=== PATIENT | female | born 1950 | race Caucasian/White ===

== ENCOUNTER 2018-03-08 09:16 | Outpatient (CLI) | payer MEDICARE, MEDICAID | END 2018-03-08 09:17 | disposition home or self-care (01) | LOC: BICMAMMO 09:16 | PROVIDERS: ATTEND Family Medicine | DX: Z12.31 Encounter for screening mammogram for malignant neoplasm of breast (principal); N63.20 Unspecified lump in the left breast, unspecified quadrant; Z80.3 Family history of malignant neoplasm of breast; Z85.3 Personal history of malignant neoplasm of breast | CPT/HCPCS: 77063; 77067 ==

== ENCOUNTER 2018-03-22 09:11 | Outpatient (CLI) | payer MEDICARE, MEDICAID | END 2018-03-22 09:12 | disposition home or self-care (01) | LOC: BICMAMMO 09:11 | PROVIDERS: ATTEND Family Medicine | DX: N63.20 Unspecified lump in the left breast, unspecified quadrant (principal) | CPT/HCPCS: 77065; G0279 ==

== ENCOUNTER 2018-03-22 09:14 | Outpatient (CLI) | payer MEDICARE, MEDICAID | END 2018-03-22 09:15 | disposition home or self-care (01) | LOC: BICMAMMO 09:14 | PROVIDERS: ATTEND Family Medicine | DX: M85.80 Other specified disorders of bone density and structure, unspecified site (principal); N63.20 Unspecified lump in the left breast, unspecified quadrant; M81.0 Age-related osteoporosis without current pathological fracture | CPT/HCPCS: 77080 ==

== ENCOUNTER → 2018-03-29 | Day surgery (SDC) | payer MEDICARE, MEDICAID | LOC: BICULT 09:52 | PROVIDERS: ATTEND Family Medicine | PROC: 0HBU3ZX Excision of Left Breast, Percutaneous Approach, Diagnostic (ICD-10-PCS; principal; 2018-03-29) | DX: C50.812 Malignant neoplasm of overlapping sites of left female breast (principal); Z85.3 Personal history of malignant neoplasm of breast; Z91.041 Radiographic dye allergy status; Z91.040 Latex allergy status | CPT/HCPCS: 19083; 88305; 88341; 88342; 88360; 88361 ==

== ENCOUNTER 2018-05-06 10:29 | Outpatient (CLI) | payer MEDICARE, MEDICAID ==
[2018-05-06 11:18] LABS: Hemoglobin 12.2 g/dL (12.0-16.0); Lymphocytes 77 % (21-51); MDiff Complete? YES; Mean Corpuscular HGB CONC 32.9 g/dL (32.0-36.0); Mean Platelet Volume 8.7 fL (7.4-10.4); Monocytes 4 % (0-10); Neutrophil 19 % (42-75); Platelet Count 168 thou/uL (130-400); RBC Distribution Width 11.6 % (11.5-14.5); RBC Morphology Normal; Red Blood Cell (RBC) Count 3.69 mill/uL (4.20-5.40); Reflex for Review?? YES; White Blood Cell (WBC) Count 23.5 thou/uL (4.8-10.8)
[2018-05-06 11:19] LABS: Anion Gap 12 mmol/L (10-20); BUN (Urea Nitrogen) 19 mg/dL (9.8-20.1); Calc. Creatinine Clearance 0 mL/min (70-130); Calcium 9.7 mg/dL (7.8-10.44); Carbon Dioxide 26 mmol/L (23-31); Chloride 106 mmol/L (98-107); Estimated GFR-MDRD 69; Glucose 113 mg/dL (80-115); Potassium 4.9 mmol/L (3.5-5.1); Sodium 139 mmol/L (136-145)
== END 2018-05-06 10:30 | disposition home or self-care (01) ==
LOC: LABBT 10:29
PROVIDERS: ATTEND Specialist
DX: Z01.818 Encounter for other preprocedural examination (principal); C50.912 Malignant neoplasm of unspecified site of left female breast; R59.0 Localized enlarged lymph nodes
CPT/HCPCS: 80048; 85025; 93005; 93010

== ENCOUNTER 2018-05-10 06:10 | Day surgery (SDC) | payer MEDICARE, MEDICAID ==
[2018-05-06 11:16] VITALS: BMI 34.7
--- NOTE | 2018-05-10 10:52 | NM ---
LEFT BREAST LYMPHOSCINTIGRAPHY: Date: 05/10/18 HISTORY: Malignant neoplasm of unspecified site of left female breast. RADIOPHARMACEUTICAL: 400 microcuries technetium-99m filtered sulfur colloid injected in divided doses in the left periareo lar breast. FINDINGS: There is focally increased uptake in the left axilla consistent with sentinel lymph node. No tracer l ocalization is noted in the internal mammary chains of the right axilla. IMPRESSION: [place] lymph node in the left axilla. POS: OFF
[2018-05-10] MEDS ORDERED: CEFAZOLIN/Water 2 GM/20 ML SYRINGE ONE (11:11)
[2018-05-10] MEDS ORDERED: Ketorolac Tromethamine 30 MG/ML VIAL ONE (11:12)
[2018-05-10] MEDS ORDERED: Dexamethasone 20 MG/5 ML VIAL ONE (13:14)
[2018-05-10] MEDS ORDERED: Metoclopramide HCl 10 MG/2 ML VIAL ONE (13:14)
[2018-05-10] MEDS ORDERED: Ondansetron HCl/PF 4 MG/2 ML Vial ONE (13:14)
[2018-05-10] MEDS ORDERED: PROPOFOL 200 MG/20 ML VIAL ONE (13:14)
[2018-05-10] MEDS ORDERED: Lidocaine 1% PF 5 ML VIAL ONE (13:14)
[2018-05-10] MEDS ORDERED: Isosulfan Blue 50 MG/5 ML VIAL ONE (14:13)
[2018-05-10] MEDS ORDERED: Bupivacaine/Epinephrine 0.25% 30 ML VIAL ONE ×2 (14:13→15:58)
[2018-05-10] MEDS ORDERED: Fentanyl 100 MCG/2 ML VIAL ONE (14:14)
--- NOTE | 2018-05-10 16:29 | MMO ---
SPECIMEN RADIOGRAPH: Date: 05/10/18 HISTORY: Excision of left breast lesion. FINDINGS: A specimen radiograph is provided. The specimen contains a localization wire, a post biopsy clip, and a spiculated mass. The spiculated mass is centered at the I/J3 location. IMPRESSION: Specimen radiograph demonstrates a post biopsy clip and spiculated mass, as above. POS: [facility]
--- NOTE | 2018-05-11 15:30 | OP ---
DATE OF OPERATION: 05/10/2018 PREOPERATIVE DIAGNOSIS: Left breast cancer, chronic lymphocytic leukemia involving at least the lymp h nodes and left axilla. POSTOPERATIVE DIAGNOSIS: Left breast cancer, chronic lymphocytic leukemia involving at least the lym ph nodes and left axilla. OPERATION PERFORMED: Left breast ultrasound guided needle localization of breast cancer, left breast needle localized lumpectomy, left axillary sentinel lymph node biopsy. SURGEON: Jah Schilling M.D. ANESTHESIA: General endotracheal. INDICATIONS: The patient is a 67-year-old white female. On recent mammography, she was found to hav e a lesion in her upper left breast. This is biopsy proven to be a malignancy. She had large left a xillary lymph nodes. I performed a core needle biopsy of these revealing findings consistent with CL L. It was not felt that she required any further evaluation and treatment of this at this time and d ecision was made to proceed with breast conservation surgery. DESCRIPTION OF OPERATION: Informed consent was obtained. The patient was taken to the operating sacha m where general endotracheal anesthesia obtained with the patient in supine position. Left breast wa s infiltrated with 3 mL of Lymphazurin in the periareolar subdermal tissue and the breast was massage d for five minutes. Left breast and axilla were prepped with ChloraPrep and draped in sterile fashio n. Attention was turned first to the left axilla. A transverse incision was created at the inferior aspect of the hair bearing area. Dissection was carried through the skin, subcutaneous tissue, and anterior axillary fascia. Within the axilla, I was able to identify areas of obvious increased radio activity. The single dominant sentinel lymph node was quickly identified and dissected circumferashley thorpe. This was clearly enlarged but it is suspected that this was secondary to her CLL. All investi ng lymphatics were divided between clamps and 3-0 silk ties and then the lymph node was removed. Thi s was blue stained as well. This was submitted as the dominant sentinel lymph node. I then identifi ed two additional areas of radioactivity. These two lymph nodes were also dissected circumferentiall y and removed in a similar fashion. These had substantially less radioactivity within the dominant n ode. There were, however, enlarged and abnormal as well. All nodes were submitted to pathology to tristen barajas touch prep, which revealed no evidence of metastatic breast cancer. Meticulous hemostasis obt ained within the axilla. It was closed in layers with 3-0 and 4-0 Monocryl and Dermabond was placed externally. Attention was turned to the left breast. Ultrasound was utilized to identify the malignancy at the 1 2 o'clock radian. This was marked on the skin in a grid type fashion. I then performed needle local ization, passing the localizing needle through the malignancy in a lateral to medial fashion. Incisi on was created in continuity with the localizing needle. Dissection was carried through skin and sub cutaneous tissue. Flaps were raised. The tissue into which the needle entered was grasped with Lyndon s clamps and a wide lump of tissue was obtained around the localizing needle. The specimen was remov ed from within the breast and tagged for orientation with several sutures and submitted to pathology. Specimen mammography did reveal the spiculated lesion within the mass as well as the marking clip. Meticulous hemostasis was obtained within the wound. It was closed in layers with 3-0 and 4-0 Monocr yl and Dermabond was placed externally. There were no complications with this procedure. Blood loss was negligible. The patient tolerated the procedure well and was taken to recovery room in stable c ondition.
== END 2018-05-10 17:59 | disposition home or self-care (01) ==
LOC: SDC 06:10
PROVIDERS: ATTEND Specialist
PROC: 0HBU0ZZ Excision of Left Breast, Open Approach (ICD-10-PCS; principal; 2018-05-10)
PROC: 07B60ZX Excision of Left Axillary Lymphatic, Open Approach, Diagnostic (ICD-10-PCS; 2018-05-10)
DX: C50.812 Malignant neoplasm of overlapping sites of left female breast (principal); C91.10 Chronic lymphocytic leukemia of B-cell type not having achieved remission; G47.00 Insomnia, unspecified; E05.90 Thyrotoxicosis, unspecified without thyrotoxic crisis or storm; E78.5 Hyperlipidemia, unspecified; I10 Essential (primary) hypertension; M81.0 Age-related osteoporosis without current pathological fracture; J44.9 Chronic obstructive pulmonary disease, unspecified; F43.23 Adjustment disorder with mixed anxiety and depressed mood; Z87.891 Personal history of nicotine dependence; Z79.51 Long term (current) use of inhaled steroids; Z79.83 Long term (current) use of bisphosphonates; Z79.899 Other long term (current) drug therapy; Z91.040 Latex allergy status; Z88.5 Allergy status to narcotic agent; Z91.048 Other nonmedicinal substance allergy status; Z17.0 Estrogen receptor positive status [ER+]
CPT/HCPCS: 19301; 38525; 38900; 76098; 78195; 88184; 88307; 88333; 88334; 88341; 88342; 88360; A9541; Q9968; J0131; J1100; J1885; J2001; J2405; J2704; J2765; J3010

== ENCOUNTER 2018-06-27 11:30 | Outpatient (CLI) | payer MEDICARE, MEDICAID ==
[~2018-06-27 11:30] MED LIST: Iopamidol 370 76% 100 ML VIAL ONE
--- NOTE | 2018-06-27 14:27 | CT ---
CHEST CT WITH IV COTRAST: 06/27/2018 HISTORY: Breast cancer. Right upper lobe mass seen on prior imaging. COMPARISON: None. TECHNIQUE: Serial axial CT imaging is obtained at 5 mm intervals, from the thoracic inlet through the upper abdo men with IV contrast. Coronal reformatted imaging obtained. FINDINGS: There is irregular soft tissue mass density within the superior aspect of the left breast parenchyma, at the 12 o'clock position, measuring 3.3 cm, on image 17, significance uncertain. This could be re lated to post treatment change or breast malignancy. There are enlarged nodes in the axillary region , on the left, measuring up to 1.7 cm in short axis dimension. These could be reactive or metastatic in nature. Multiple abnormal, mildly enlarged lymph nodes are seen posterior to the left pectoralis minor muscle as well. Mildly prominent axillary lymph nodes are noted on the right as well, measuring up to 1.6 cm in short axis dimension, significance uncertain. There are postoperative clips in the right axillary region. 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 No mediastinal or hilar lymphadenopathy. Cholecystectomy clips are present. Imaged hepatic and splenic parenchyma demonstrate no focal lesion . Abnormal tubular hypodensity is noted within the distal aspect of the tail of the pancreas, best s een on axial image 52 and coronal image 78. This may signify distal pancreatic ductal dilatation and /or a cystic mass within the tail of the pancreas. No significant pleural, pericardial, or mediastinal fluid. Vascular structures of the chest appear p atent. Incidental note is made of a retropharyngeal course of bilateral common carotid arteries. No pneumothorax is noted on either side. No discrete pulmonary parenchymal mass lesion or nodule noted on the left. There is a spiculated mass within the right lung, superiorly, measuring 1.6 cm. This appears to be j ust superior to the minor fissure, within the inferior-posterior right upper lobe. In addition, ther e is a pulmonary nodule in the posterior aspect of the right lower lobe, on image 26, measuring 7 mm. Review of the osseous structures demonstrates no discrete suspicious lytic or blastic lesion. There is an old clavicle fracture on the left. IMPRESSION: 1. Focal area of abnormal density in the left breast, at the 12 o'clock position, may be on the basi s of residual malignancy and/or post treatment changes. 2. Lymphadenopathy in bilateral axillary regions, left greater than right. Findings may be on the b asis of metastatic disease. 3. Pulmonary nodules are noted on the right, including a spiculated mass measuring up to 1.6 cm. Th is is suspicious for malignancy and may represent primary bronchogenic carcinoma or metastatic diseas e. 4. 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 Please consider a PET scan for full assessment of the above described findings. ADDENDUM: A prior examination is available, performed on 06/26/2014. Of note, the lesion within the right uppe r lobe was previous on the prior examination, but measured 1.2 cm in transverse dimension, thus enlar ged. In addition, the small nodule within the right lower lobe was present but has also increased in size, previously measuring less than 3 mm. The bilateral axillary lymphadenopathy is new. CODE T POS: [facility]
== END 2018-06-27 11:31 | disposition home or self-care (01) ==
LOC: CT 11:30
PROVIDERS: ATTEND Radiology Radiation Oncology
DX: C50.919 Malignant neoplasm of unspecified site of unspecified female breast (principal); R91.1 Solitary pulmonary nodule; N64.89 Other specified disorders of breast; R59.0 Localized enlarged lymph nodes; R91.8 Other nonspecific abnormal finding of lung field
CPT/HCPCS: 71260; 77412; 82565; 85025

== ENCOUNTER 2018-09-13 18:16 | Emergency (ER) | payer MEDICARE, MEDICAID ==
[2018-09-13] MEDS ORDERED: Ketorolac Tromethamine 30 MG/ML VIAL ONE (19:14)
[2018-09-13] MEDS ORDERED: Morphine 10 MG/ML VIAL ONE (20:03)
--- NOTE | 2018-09-13 20:14 | RAD ---
CHEST ONE VIEW 09/13/18 HISTORY: Intermittent left rib pain. COMPARISON: 05/26/16. FINDINGS: Portable upright chest radiograph demonstrates a normal cardiac silhouette. Pulmonary vessels are wit hin normal limits. There are interstitial opacities throughout the lung parenchyma, without consolida tion or mass. No pleural effusions. No pneumothorax or acute osseous abnormalities. IMPRESSION: Presumed chronic change in the lung parenchyma. Prominence of the interstitium is likely in part due to decreased lung volumes. POS: [facility]
== END 2018-09-13 20:37 | disposition home or self-care (01) ==
LOC: ERS 18:16
DX: R07.89 Other chest pain (principal); J44.9 Chronic obstructive pulmonary disease, unspecified; I10 Essential (primary) hypertension; M81.0 Age-related osteoporosis without current pathological fracture; F41.9 Anxiety disorder, unspecified; F32.9 Major depressive disorder, single episode, unspecified; Z79.899 Other long term (current) drug therapy
CPT/HCPCS: 71045; 96372; J1885; J2270

== ENCOUNTER 2018-10-20 10:01 | Outpatient (CLI) | payer MEDICARE, MEDICAID ==
--- NOTE | 2018-10-20 13:49 | CT ---
CT CHEST WITH CONTRAST: Comparison: 07-15-18, 06-26-14 History: Right upper lobe mass. FINDINGS: Mild heterogeneity of the thyroid gland. There is asymmetric change to the left breast, post treatmen t in nature. There is no mediastinal mass, lymphadenopathy or hematoma. Heart size is within normal limits. No sig nificant pericardial fluid. The visualized aorta has a normal caliber. No periaortic fat stranding. There is hypoattenuation involving the tail of the pancreas, measuring 2.8 cm. The remainder of the p ancreas is unremarkable. Gallbladder is surgically absent. Visualized liver, spleen, adrenal glands and kidneys are also unremarkable. There are no lytic or blastic lesions in the osseous structures. There is a stable compression fractu re involving the T11 and T12 vertebral body. There is ventral planus at T12. There are chronic changes of the lung parenchyma. There are no new masses or nodules in the left uppe r lobe or left lower lobe. There is a stable nodule in the superior segment of the right lower lobe m easuring 0.7 x 0.5 cm. Previously, this nodule measured 0.7 cm. Nodule has increased in size since . There is a larger nodule that is in the right upper lobe. The margins are somewhat spiculated. Th is nodule measures 1.5 x 1.0 cm. Previously, this nodule measured 1.6 x 1.1 cm. This nodule has sligh tly increased in size when compared to the examination from 2013 at which time it measured 1.2 x 0.9 cm. Given the interval increase in size and spiculation of the margins, PET imaging is warranted. No new nodules are noted in the right lung. Trachea and central bronchi are patent. No pleural effusi on or pneumothorax. IMPRESSION: Right lung nodule as described above. PET imaging is recommended. POS: [facility]
== END 2018-10-20 10:02 | disposition home or self-care (01) ==
LOC: SCSCT 10:01
PROVIDERS: ATTEND Radiology Radiation Oncology
DX: R91.1 Solitary pulmonary nodule (principal); C50.812 Malignant neoplasm of overlapping sites of left female breast
CPT/HCPCS: 71260; 82565

== ENCOUNTER 2019-05-23 19:30 | Outpatient (CLI) | payer MEDICARE, MEDICAID | END 2019-05-23 19:31 | disposition home or self-care (01) | LOC: SLEEPLAB 19:30 | PROVIDERS: ATTEND Internal Medicine Pulmonary Disease | DX: G47.33 Obstructive sleep apnea (adult) (pediatric) (principal); R53.83 Other fatigue; E66.9 Obesity, unspecified; R06.83 Snoring; J44.9 Chronic obstructive pulmonary disease, unspecified; I10 Essential (primary) hypertension; R35.1 Nocturia; G47.12 Idiopathic hypersomnia without long sleep time; R09.02 Hypoxemia | CPT/HCPCS: 95810 ==

== ENCOUNTER 2019-08-11 08:02 | Outpatient (CLI) | payer MEDICARE, MEDICAID ==
--- NOTE | 2019-08-11 09:55 | RAD ---
RIGHT KNEE 4 VIEWS: Date: 08/11/19 HISTORY: M25.561 acute pain in right knee. Follow-up. COMPARISON: None. FINDINGS: Small joint effusion. No acute displaced fracture or malalignment. There is moderate tricompartmental narrowing with osteophyte formation, greatest in the medial compartment. IMPRESSION: 1. Moderate tricompartmental degenerative change. No acute displaced fracture. 2. Small joint effusion may be reactive from degenerative changes. POS: [facility]
== END 2019-08-11 08:03 | disposition home or self-care (01) ==
LOC: SCSRAD 08:02
PROVIDERS: ATTEND Family Medicine
DX: M25.561 Pain in right knee (principal); M17.11 Unilateral primary osteoarthritis, right knee; M25.461 Effusion, right knee

== ENCOUNTER 2021-11-06 14:25 | Inpatient (IN) | payer MEDICARE, MEDICAID ==
[2021-11-06 15:14] LABS: #Eosinphils 0.1 thou/uL (0.0-0.7); #Lymphocytes 1.5 thou/uL (1.20-3.40); #Monocytes 1.2 thou/uL (0.11-0.59); %Basophils 0.1 % (0.0-1.0); %Eosinophils 0.6 % (0.0-10.0); %Monocytes 13.4 % (0.0-10.0); %Neutrophils 68.9 % (42.0-75.0); Hemoglobin 11.6 g/dL (12.0-16.0); Mean Corpuscular Hemoglobin 32.5 pg (27.0-31.0); Mean Corpuscular Volume 98.7 fL (78.0-98.0); Mean Platelet Volume 10.3 fL (7.4-10.4); Platelet Count 82 thou/uL (130-400); RBC Distribution Width 13.2 % (11.5-14.5); Red Blood Cell (RBC) Count 3.57 mill/uL (4.20-5.40); White Blood Cell (WBC) Count 8.7 thou/uL (4.8-10.8)
[2021-11-06 15:34] LABS: ALT (SGPT) 8 U/L (8-55); AST (SGOT) 15 U/L (5-34); Alkaline Phosphatase 54 U/L (40-110); Anion Gap 10 mmol/L (10-20); BUN (Urea Nitrogen) 16 mg/dL (9.8-20.1); Bilirubin, Total 0.7 mg/dL (0.2-1.2); CK (CPK) 27 U/L (29-168); Calc. Creatinine Clearance 0 mL/min (70-130); Calcium 9.7 mg/dL (7.8-10.44); Carbon Dioxide 28 mmol/L (23-31); Chloride 104 mmol/L (98-107); Globulin 2.4 g/dL (2.4-3.5); Glucose 110 mg/dL (83-110); Lipase 8 U/L (8-78); Potassium 3.6 mmol/L (3.5-5.1); Protein, Total 5.4 g/dL (5.8-8.1); Sodium 138 mmol/L (136-145)
[2021-11-06 15:41] LABS: MDiff Complete? YES; Ovalocytes SLIGHT = 2-5 cells (100X) (0-1/hpf); Platelet Morphology Comment Appears Decreased; Polychromasia SLIGHT = 2-3 cells (100X) (0-2/hpf)
[2021-11-06 16:06] LABS: Bacteria/HPF None Seen HPF (None Seen); Bilirubin Negative (Negative); Blood, Urine Trace (Negative); Clarity Clear (Clear); Glucose, Urine (Dipstick) Normal (Negative); Ketone, Urine Negative (Negative); Leukocyte Negative Leu/uL (Negative); Nitrite Negative (Negative); Protein, Urine (Dipstick) 70 mg/dL (Neg-Trace); Specific Gravity, Urine 1.021 (1.002-1.036); Squamous Epithelial None Seen HPF (0-3); Urobilinogen Normal mg/dL (Less than 2); WBC/HPF None Seen HPF (0-3); pH, Urine 6.5 (5.0-9.0)
[2021-11-06] MEDS ORDERED: cefTRIAXone\\ROCEPHIN 2 GM VIAL ONE (16:38)
[2021-11-06 17:40] LABS: Actual Bicarbonate (HCO3v) 28 mEq/L (22-28); Analyzer IN Cardio ER; Base Excess 1.1 mEq/L (-2.0 to +3.0); Calcium, Ionized (venous) 1.17 mmol/L (1.16-1.32); Chloride (VBG) 106 mmol/L (98-106); Hemoglobin (Hb) 10.8 g/dL (11.7-16.1); Potassium (VBG) 3.64 mmol/L (3.70-5.30); Sodium 138.8 mmol/L (133-146); pH (venous) 7.31 (7.32-7.43)
[2021-11-06] MEDS ORDERED: Ondansetron PF 4 MG/2 ML Vial IVP PRN (17:40)
[2021-11-06] MEDS ORDERED: Acetaminophen 650 MG Suppository PR PRN (17:40)
[2021-11-06] MEDS ORDERED: Senokot S 8.6-50 MG TAB PO PRN (17:40)
[2021-11-06] MEDS ORDERED: Bisacodyl 5 MG TAB PO PRN (17:40)
[2021-11-06 17:46] LABS: INR-International Normal Ratio 1.1; PTT 33.6 sec (22.9-36.1); Prothrombin Time 14.4 sec (12.0-14.7)
[2021-11-06] MEDS ORDERED: Azithromycin 500 MG VIAL ONE (17:54)
[2021-11-06 19:34] VITALS: BMI 33.9
[2021-11-06 19:57] LABS: Acetaminophen Less than 6.0 mcg/mL (10.0-30.0); Salicylate Less than 8.0 mg/dL (15.0-30.0)
[2021-11-06] MEDS ORDERED: Methimazole 5 MG TAB PO SCH (20:30)
[2021-11-06] MEDS ORDERED: Albuterol Sulfate 2.5 mg/3 ml Neb NEB PRN (20:43)
[2021-11-06] MEDS ORDERED: Famotidine/PF 20 mg/2ml Vial SLOW IVP SCH (21:00)
[2021-11-06] MEDS: Sodium Chloride 0.9% 1,000 ML IV SCH (21:00)
[2021-11-07 03:24] LABS: Amphetamine Not Detected (NotDetected); Barbiturates Screen Not Detected (NotDetected); Benzodiazepine Screen Detected (NotDetected); Cocaine Metabolite Screen Not Detected (NotDetected); Methadone Not Detected (NotDetected); Methamphetamine Not Detected (NotDetected); Opiate Screen Detected (NotDetected); Oxycodone Screen Not Detected (NotDetected); Phencyclidine (PCP) Not Detected (NotDetected); THC/Cannabinoid Screen Not Detected (NotDetected); Tricyclic Screen Detected (NotDetected)
[2021-11-07 05:50] LABS: #Eosinphils 0.1 thou/uL (0.0-0.7); #Lymphocytes 1.2 thou/uL (1.20-3.40); #Monocytes 0.8 thou/uL (0.11-0.59); #Neutrophils 4.7 thou/uL (1.40-6.50); %Basophils 0.1 % (0.0-1.0); %Eosinophils 0.9 % (0.0-10.0); %Lymphocytes 17.8 % (21.0-51.0); %Monocytes 11.3 % (0.0-10.0); %Neutrophils 69.9 % (42.0-75.0); Hemoglobin 10.3 g/dL (12.0-16.0); Mean Corpuscular Hemoglobin 32.4 pg (27.0-31.0); Mean Corpuscular Volume 98.2 fL (78.0-98.0); Platelet Count 75 thou/uL (130-400); RBC Distribution Width 13.3 % (11.5-14.5); Red Blood Cell (RBC) Count 3.19 mill/uL (4.20-5.40); White Blood Cell (WBC) Count 6.8 thou/uL (4.8-10.8)
[2021-11-07 06:13] LABS: ALT (SGPT) 7 U/L (8-55); AST (SGOT) 14 U/L (5-34); Albumin 2.9 g/dL (3.4-4.8); Alkaline Phosphatase 53 U/L (40-110); Anion Gap 9 mmol/L (10-20); BUN (Urea Nitrogen) 11 mg/dL (9.8-20.1); Bilirubin, Total 0.5 mg/dL (0.2-1.2); Calc. Creatinine Clearance 111 mL/min (70-130); Calcium 8.6 mg/dL (7.8-10.44); Carbon Dioxide 27 mmol/L (23-31); Chloride 107 mmol/L (98-107); Globulin 2.2 g/dL (2.4-3.5); Glucose 82 mg/dL (83-110); Potassium 3.7 mmol/L (3.5-5.1); Protein, Total 5.1 g/dL (5.8-8.1); Sodium 139 mmol/L (136-145)
[2021-11-07] MEDS ORDERED: Atenolol 50 MG TAB PO SCH (09:00)
[2021-11-07] MEDS ORDERED: Meclizine HCl 25 MG TAB PO PRN (10:09)
[2021-11-07] MEDS: Methimazole 5 MG TAB PO SCH (11:44)
[2021-11-07] MEDS: Acetaminophen 325 MG TAB PO PRN (12:06)
[2021-11-07] MEDS: Ampicillin/Sulbactam 1.5 GM in Sodium Chloride 0.9% 100 ML IVPB SCH ×2 (13:15→17:21)
[2021-11-07] MEDS ORDERED: cefTRIAXone\\ROCEPHIN 1 GM in Sodium Chloride 0.9% 100 ML IVPB SCH (16:00)
[2021-11-07 17:16] LABS: SARS-CoV-2 PCR by NAA Not Detected (NotDetected)
[2021-11-07] MEDS: Sodium Chloride 0.9% 1,000 ML IV SCH (17:21)
[2021-11-07] MEDS ORDERED: Azithromycin 500 MG in Sodium Chloride 0.9% 250 ML 250 ML IVPB SCH (18:00)
[2021-11-07] MEDS: Mometasone Furoate 30 PUFF 220 MCG INH SCH (19:26)
[2021-11-07] MEDS ORDERED: Acetaminophen/Codeine 30-300mg Tablet PO SCH (20:42)
[2021-11-07] MEDS: Rosuvastatin 20 MG TAB PO SCH (22:14)
[2021-11-07] MEDS: Carvedilol 25 MG TAB PO SCH (22:17)
[2021-11-08] MEDS: Ampicillin/Sulbactam 1.5 GM in Sodium Chloride 0.9% 100 ML IVPB SCH ×4 (01:03→20:44)
[2021-11-08 05:32] LABS: #Eosinphils 0.1 thou/uL (0.0-0.7); #Monocytes 0.6 thou/uL (0.11-0.59); %Basophils 0.3 % (0.0-1.0); %Lymphocytes 17.8 % (21.0-51.0); %Monocytes 10.8 % (0.0-10.0); %Neutrophils 69.2 % (42.0-75.0); Hemoglobin 10.8 g/dL (12.0-16.0); Mean Corpuscular Hemoglobin 32.3 pg (27.0-31.0); Mean Corpuscular Volume 97.7 fL (78.0-98.0); Mean Platelet Volume 9.8 fL (7.4-10.4); Platelet Count 84 thou/uL (130-400); RBC Distribution Width 13.4 % (11.5-14.5); Red Blood Cell (RBC) Count 3.35 mill/uL (4.20-5.40); White Blood Cell (WBC) Count 5.8 thou/uL (4.8-10.8)
[2021-11-08 05:52] LABS: Anion Gap 11 mmol/L (10-20); BUN (Urea Nitrogen) 7 mg/dL (9.8-20.1); Calc. Creatinine Clearance 117 mL/min (70-130); Calcium 9.1 mg/dL (7.8-10.44); Carbon Dioxide 25 mmol/L (23-31); Chloride 107 mmol/L (98-107); Glucose 104 mg/dL (83-110); Potassium 3.6 mmol/L (3.5-5.1); Sodium 139 mmol/L (136-145)
[2021-11-08] MEDS: Carvedilol 25 MG TAB PO SCH ×2 (09:20→20:50)
[2021-11-08] MEDS: Clopidogrel Bisulfate 75 MG TAB PO SCH (09:20)
[2021-11-08] MEDS: Methimazole 5 MG TAB PO SCH (09:21)
[2021-11-08] MEDS: Pantoprazole 40 MG GRANULES PACKET PO SCH (13:22)
[2021-11-08] MEDS: Sodium Chloride 0.9% 1,000 ML IV SCH ×2 (13:27→14:33)
[2021-11-08] MEDS: Scopolamine 1.5 mg/72 hour Patch TD SCH (14:54)
[2021-11-08] MEDS: Rosuvastatin 20 MG TAB PO SCH (20:45)
[2021-11-08] MEDS: Mometasone Furoate 30 PUFF 220 MCG INH SCH (21:56)
[2021-11-09] MEDS: Ampicillin/Sulbactam 1.5 GM in Sodium Chloride 0.9% 100 ML IVPB SCH ×4 (02:57→21:21)
[2021-11-09 05:36] LABS: #Lymphocytes 1.4 thou/uL (1.20-3.40); #Monocytes 0.5 thou/uL (0.11-0.59); #Neutrophils 3.6 thou/uL (1.40-6.50); %Basophils 0.2 % (0.0-1.0); %Eosinophils 0.9 % (0.0-10.0); %Lymphocytes 24.7 % (21.0-51.0); %Monocytes 9.1 % (0.0-10.0); %Neutrophils 65.2 % (42.0-75.0); Hemoglobin 11.1 g/dL (12.0-16.0); Mean Corpuscular HGB CONC 33.3 g/dL (32.0-36.0); Mean Corpuscular Hemoglobin 32.7 pg (27.0-31.0); Mean Platelet Volume 10.1 fL (7.4-10.4); Platelet Count 98 thou/uL (130-400); RBC Distribution Width 13.1 % (11.5-14.5); White Blood Cell (WBC) Count 5.5 thou/uL (4.8-10.8)
[2021-11-09 05:51] LABS: Anion Gap 12 mmol/L (10-20); BUN (Urea Nitrogen) 6 mg/dL (9.8-20.1); Calc. Creatinine Clearance 121 mL/min (70-130); Calcium 9.2 mg/dL (7.8-10.44); Carbon Dioxide 23 mmol/L (23-31); Chloride 108 mmol/L (98-107); Glucose 93 mg/dL (83-110); Potassium 3.5 mmol/L (3.5-5.1); Sodium 139 mmol/L (136-145)
[2021-11-09 05:59] LABS: Magnesium 1.8 mg/dL (1.6-2.6)
[2021-11-09] MEDS: Sodium Chloride 0.9% 1,000 ML IV SCH ×2 (07:07→22:49)
[2021-11-09] MEDS: Clopidogrel Bisulfate 75 MG TAB PO SCH (09:19)
[2021-11-09] MEDS: Carvedilol 25 MG TAB PO SCH ×2 (09:20→21:21)
[2021-11-09] MEDS: Methimazole 5 MG TAB PO SCH (09:20)
[2021-11-09] MEDS: Pantoprazole 40 MG GRANULES PACKET PO SCH (09:20)
[2021-11-09] MEDS: Mometasone Furoate 30 PUFF 220 MCG INH SCH (19:33)
[2021-11-09] MEDS: Rosuvastatin 20 MG TAB PO SCH (21:21)
[2021-11-10] MEDS: Ampicillin/Sulbactam 1.5 GM in Sodium Chloride 0.9% 100 ML IVPB SCH ×4 (04:06→20:29)
[2021-11-10 05:43] LABS: #Eosinphils 0.1 thou/uL (0.0-0.7); #Lymphocytes 1.3 thou/uL (1.20-3.40); #Monocytes 0.5 thou/uL (0.11-0.59); #Neutrophils 3.4 thou/uL (1.40-6.50); %Basophils 0.4 % (0.0-1.0); %Eosinophils 1.8 % (0.0-10.0); %Lymphocytes 24.7 % (21.0-51.0); %Monocytes 9.9 % (0.0-10.0); %Neutrophils 63.3 % (42.0-75.0); Hemoglobin 10.9 g/dL (12.0-16.0); Mean Corpuscular HGB CONC 33.7 g/dL (32.0-36.0); Mean Corpuscular Hemoglobin 32.4 pg (27.0-31.0); Mean Corpuscular Volume 96.2 fL (78.0-98.0); Mean Platelet Volume 9.5 fL (7.4-10.4); Platelet Count 113 thou/uL (130-400); RBC Distribution Width 13.2 % (11.5-14.5); Red Blood Cell (RBC) Count 3.36 mill/uL (4.20-5.40); White Blood Cell (WBC) Count 5.4 thou/uL (4.8-10.8)
[2021-11-10 06:03] LABS: Anion Gap 11 mmol/L (10-20); BUN (Urea Nitrogen) 6 mg/dL (9.8-20.1); Calc. Creatinine Clearance 115 mL/min (70-130); Calcium 8.8 mg/dL (7.8-10.44); Carbon Dioxide 24 mmol/L (23-31); Chloride 108 mmol/L (98-107); Glucose 78 mg/dL (83-110); Magnesium 1.7 mg/dL (1.6-2.6); Potassium 3.3 mmol/L (3.5-5.1); Sodium 140 mmol/L (136-145)
[2021-11-10] MEDS: Sodium Chloride 0.9% 1,000 ML IV SCH ×2 (09:04→17:41)
[2021-11-10] MEDS: Carvedilol 25 MG TAB PO SCH ×2 (09:06→20:29)
[2021-11-10] MEDS: Clopidogrel Bisulfate 75 MG TAB PO SCH (09:06)
[2021-11-10] MEDS: Methimazole 5 MG TAB PO SCH (09:07)
[2021-11-10] MEDS: Pantoprazole 40 MG GRANULES PACKET PO SCH (09:07)
[2021-11-10] MEDS: Mometasone Furoate 30 PUFF 220 MCG INH SCH (18:37)
[2021-11-10] MEDS: IBRUTINIB 420 MG TABLET PO SCH (19:22)
[2021-11-10] MEDS: Rosuvastatin 20 MG TAB PO SCH (20:29)
[2021-11-11] MEDS: Ampicillin/Sulbactam 1.5 GM in Sodium Chloride 0.9% 100 ML IVPB SCH ×4 (03:30→20:17)
[2021-11-11 05:29] LABS: #Eosinphils 0.1 thou/uL (0.0-0.7); #Lymphocytes 1.6 thou/uL (1.20-3.40); #Monocytes 0.5 thou/uL (0.11-0.59); #Neutrophils 3.5 thou/uL (1.40-6.50); %Basophils 0.3 % (0.0-1.0); %Eosinophils 1.5 % (0.0-10.0); %Lymphocytes 28.5 % (21.0-51.0); %Monocytes 8.6 % (0.0-10.0); %Neutrophils 61.1 % (42.0-75.0); Hemoglobin 10.9 g/dL (12.0-16.0); Mean Corpuscular HGB CONC 33.7 g/dL (32.0-36.0); Mean Corpuscular Hemoglobin 32.4 pg (27.0-31.0); Mean Platelet Volume 9.3 fL (7.4-10.4); Platelet Count 117 thou/uL (130-400); RBC Distribution Width 13.2 % (11.5-14.5); Red Blood Cell (RBC) Count 3.38 mill/uL (4.20-5.40); White Blood Cell (WBC) Count 5.7 thou/uL (4.8-10.8)
[2021-11-11 05:44] LABS: Anion Gap 11 mmol/L (10-20); BUN (Urea Nitrogen) 7 mg/dL (9.8-20.1); Calc. Creatinine Clearance 119 mL/min (70-130); Carbon Dioxide 23 mmol/L (23-31); Chloride 108 mmol/L (98-107); Glucose 71 mg/dL (83-110); Magnesium 1.6 mg/dL (1.6-2.6); Potassium 3.2 mmol/L (3.5-5.1); Sodium 139 mmol/L (136-145)
[2021-11-11] MEDS: Sodium Chloride 0.9% 1,000 ML IV SCH (06:14)
[2021-11-11] MEDS: Carvedilol 25 MG TAB PO SCH ×2 (08:44→20:17)
[2021-11-11] MEDS: Acetaminophen 325 MG TAB PO PRN (08:45)
[2021-11-11] MEDS: Pantoprazole 40 MG GRANULES PACKET PO SCH (08:46)
[2021-11-11] MEDS: Methimazole 5 MG TAB PO SCH (08:46)
[2021-11-11] MEDS: Clopidogrel Bisulfate 75 MG TAB PO SCH (08:46)
[2021-11-11] MEDS ORDERED: Potassium Chloride 20 MEQ TAB PO SCH (09:45)
[2021-11-11] MEDS: IBRUTINIB 420 MG TABLET PO SCH ×2 (10:32→10:33)
[2021-11-11] MEDS ORDERED: Amlodipine 10 MG TAB PO SCH (12:45)
[2021-11-11] MEDS: Scopolamine 1.5 mg/72 hour Patch TD SCH (13:32)
[2021-11-11] MEDS: Mometasone Furoate 30 PUFF 220 MCG INH SCH (19:09)
[2021-11-11] MEDS: Rosuvastatin 20 MG TAB PO SCH (20:17)
[2021-11-12] MEDS: Ampicillin/Sulbactam 1.5 GM in Sodium Chloride 0.9% 100 ML IVPB SCH ×2 (03:01→09:18)
[2021-11-12] MEDS: Acetaminophen 325 MG TAB PO PRN ×2 (03:01→20:15)
[2021-11-12 06:05] LABS: #Eosinphils 0.1 thou/uL (0.0-0.7); #Lymphocytes 1.8 thou/uL (1.20-3.40); #Monocytes 0.6 thou/uL (0.11-0.59); #Neutrophils 5.9 thou/uL (1.40-6.50); %Basophils 0.4 % (0.0-1.0); %Eosinophils 0.7 % (0.0-10.0); %Lymphocytes 21.5 % (21.0-51.0); %Monocytes 7.2 % (0.0-10.0); %Neutrophils 70.1 % (42.0-75.0); Hemoglobin 11.8 g/dL (12.0-16.0); Mean Corpuscular HGB CONC 34.2 g/dL (32.0-36.0); Mean Corpuscular Hemoglobin 32.6 pg (27.0-31.0); Mean Corpuscular Volume 95.3 fL (78.0-98.0); Platelet Count 128 thou/uL (130-400); RBC Distribution Width 13.5 % (11.5-14.5); Red Blood Cell (RBC) Count 3.61 mill/uL (4.20-5.40); White Blood Cell (WBC) Count 8.4 thou/uL (4.8-10.8)
[2021-11-12 06:31] LABS: Anion Gap 12 mmol/L (10-20); BUN (Urea Nitrogen) 7 mg/dL (9.8-20.1); Calc. Creatinine Clearance 115 mL/min (70-130); Calcium 9.7 mg/dL (7.8-10.44); Carbon Dioxide 25 mmol/L (23-31); Chloride 106 mmol/L (98-107); Glucose 91 mg/dL (83-110); Magnesium 1.7 mg/dL (1.6-2.6); Potassium 3.6 mmol/L (3.5-5.1); Sodium 139 mmol/L (136-145)
[2021-11-12] MEDS: Carvedilol 25 MG TAB PO SCH ×2 (09:15→20:10)
[2021-11-12] MEDS: Amlodipine 10 MG TAB PO SCH (09:15)
[2021-11-12] MEDS: Clopidogrel Bisulfate 75 MG TAB PO SCH (09:15)
[2021-11-12] MEDS: Pantoprazole 40 MG GRANULES PACKET PO SCH (09:16)
[2021-11-12] MEDS: Methimazole 5 MG TAB PO SCH (09:16)
[2021-11-12] MEDS: IBRUTINIB 420 MG TABLET PO SCH ×2 (09:17→13:11)
[2021-11-12] MEDS: Rosuvastatin 20 MG TAB PO SCH (20:11)
[2021-11-12] MEDS: Amoxicillin/Potassium Clav 875 MG TAB PO SCH (20:12)
[2021-11-12] MEDS: Mometasone Furoate 30 PUFF 220 MCG INH SCH (20:31)
[2021-11-13 07:11] LABS: #Basophils 0.1 thou/uL (0.0-0.2); #Eosinphils 0.1 thou/uL (0.0-0.7); #Lymphocytes 2.2 thou/uL (1.20-3.40); #Monocytes 0.8 thou/uL (0.11-0.59); #Neutrophils 7.9 thou/uL (1.40-6.50); %Basophils 0.5 % (0.0-1.0); %Eosinophils 0.9 % (0.0-10.0); %Lymphocytes 19.7 % (21.0-51.0); %Neutrophils 71.9 % (42.0-75.0); Hemoglobin 13.5 g/dL (12.0-16.0); Mean Corpuscular HGB CONC 32.4 g/dL (32.0-36.0); Mean Corpuscular Hemoglobin 31.4 pg (27.0-31.0); Mean Corpuscular Volume 96.9 fL (78.0-98.0); Mean Platelet Volume 9.3 fL (7.4-10.4); Platelet Count 156 thou/uL (130-400); Red Blood Cell (RBC) Count 4.31 mill/uL (4.20-5.40); White Blood Cell (WBC) Count 10.9 thou/uL (4.8-10.8)
[2021-11-13 07:31] LABS: Anion Gap 13 mmol/L (10-20); BUN (Urea Nitrogen) 12 mg/dL (9.8-20.1); Calc. Creatinine Clearance 98 mL/min (70-130); Calcium 10.8 mg/dL (7.8-10.44); Carbon Dioxide 25 mmol/L (23-31); Chloride 105 mmol/L (98-107); Glucose 107 mg/dL (83-110); Potassium 3.4 mmol/L (3.5-5.1); Sodium 140 mmol/L (136-145)
[2021-11-13] MEDS: Amlodipine 10 MG TAB PO SCH (08:26)
[2021-11-13] MEDS: Clopidogrel Bisulfate 75 MG TAB PO SCH (08:26)
[2021-11-13] MEDS: Carvedilol 25 MG TAB PO SCH ×2 (08:26→21:44)
[2021-11-13] MEDS: Amoxicillin/Potassium Clav 875 MG TAB PO SCH ×2 (08:26→21:44)
[2021-11-13] MEDS: Methimazole 5 MG TAB PO SCH (08:27)
[2021-11-13] MEDS: IBRUTINIB 420 MG TABLET PO SCH (08:27)
[2021-11-13] MEDS: Pantoprazole 40 MG GRANULES PACKET PO SCH (08:32)
[2021-11-13] MEDS ORDERED: Potassium Chloride 20 MEQ TAB PO SCH (08:45)
[2021-11-13] MEDS: Rosuvastatin 20 MG TAB PO SCH (21:44)
[2021-11-14] MEDS: Mometasone Furoate 30 PUFF 220 MCG INH SCH ×2 (01:27→20:01)
[2021-11-14 06:15] LABS: #Basophils 0.1 thou/uL (0.0-0.2); #Lymphocytes 2.9 thou/uL (1.20-3.40); #Monocytes 0.9 thou/uL (0.11-0.59); #Neutrophils 7.4 thou/uL (1.40-6.50); %Basophils 0.8 % (0.0-1.0); %Eosinophils 0.2 % (0.0-10.0); %Lymphocytes 25.6 % (21.0-51.0); %Monocytes 8.2 % (0.0-10.0); %Neutrophils 65.2 % (42.0-75.0); Hemoglobin 13.5 g/dL (12.0-16.0); Mean Corpuscular HGB CONC 33.5 g/dL (32.0-36.0); Mean Corpuscular Hemoglobin 32.5 pg (27.0-31.0); Mean Corpuscular Volume 97.2 fL (78.0-98.0); Mean Platelet Volume 9.6 fL (7.4-10.4); Platelet Count 150 thou/uL (130-400); RBC Distribution Width 14.3 % (11.5-14.5); Red Blood Cell (RBC) Count 4.15 mill/uL (4.20-5.40); White Blood Cell (WBC) Count 11.4 thou/uL (4.8-10.8)
[2021-11-14 06:34] LABS: Anion Gap 12 mmol/L (10-20); BUN (Urea Nitrogen) 17 mg/dL (9.8-20.1); Calc. Creatinine Clearance 93 mL/min (70-130); Calcium 11.2 mg/dL (7.8-10.44); Carbon Dioxide 26 mmol/L (23-31); Chloride 105 mmol/L (98-107); Glucose 99 mg/dL (83-110); Potassium 3.8 mmol/L (3.5-5.1); Sodium 139 mmol/L (136-145)
[2021-11-14] MEDS: Clopidogrel Bisulfate 75 MG TAB PO SCH (08:47)
[2021-11-14] MEDS: Carvedilol 25 MG TAB PO SCH ×2 (08:47→20:43)
[2021-11-14] MEDS: Methimazole 5 MG TAB PO SCH (08:47)
[2021-11-14] MEDS: IBRUTINIB 420 MG TABLET PO SCH (08:47)
[2021-11-14] MEDS: Amoxicillin/Potassium Clav 875 MG TAB PO SCH ×2 (08:47→20:43)
[2021-11-14] MEDS: Amlodipine 10 MG TAB PO SCH (08:47)
[2021-11-14] MEDS: Pantoprazole 40 MG GRANULES PACKET PO SCH (08:47)
[2021-11-14] MEDS: Scopolamine 1.5 mg/72 hour Patch TD SCH (14:21)
[2021-11-14] MEDS ORDERED: Lactated Ringer's 1,000 ML IV SCH (15:30)
[2021-11-14] MEDS: Rosuvastatin 20 MG TAB PO SCH (20:43)
[2021-11-14] MEDS: Acetaminophen 325 MG TAB PO PRN (20:48)
[2021-11-15 06:10] LABS: #Eosinphils 0.1 thou/uL (0.0-0.7); #Lymphocytes 2.7 thou/uL (1.20-3.40); #Monocytes 0.8 thou/uL (0.11-0.59); #Neutrophils 5.4 thou/uL (1.40-6.50); %Basophils 0.4 % (0.0-1.0); %Eosinophils 1.1 % (0.0-10.0); %Lymphocytes 29.7 % (21.0-51.0); %Neutrophils 59.8 % (42.0-75.0); Hemoglobin 12.9 g/dL (12.0-16.0); Mean Corpuscular HGB CONC 32.4 g/dL (32.0-36.0); Mean Corpuscular Hemoglobin 31.3 pg (27.0-31.0); Mean Corpuscular Volume 96.6 fL (78.0-98.0); Mean Platelet Volume 9.5 fL (7.4-10.4); Platelet Count 142 thou/uL (130-400); Red Blood Cell (RBC) Count 4.12 mill/uL (4.20-5.40); White Blood Cell (WBC) Count 9.1 thou/uL (4.8-10.8)
[2021-11-15 06:19] LABS: Anion Gap 12 mmol/L (10-20); BUN (Urea Nitrogen) 15 mg/dL (9.8-20.1); Calc. Creatinine Clearance 92 mL/min (70-130); Calcium 10.9 mg/dL (7.8-10.44); Carbon Dioxide 26 mmol/L (23-31); Chloride 106 mmol/L (98-107); Glucose 102 mg/dL (83-110); Potassium 3.5 mmol/L (3.5-5.1); Sodium 140 mmol/L (136-145)
[2021-11-15 06:38] LABS: Free T4 (Free Thyroxine) 1.63 ng/dL (0.70-1.48); T4 12.8 ug/dL (4.87-11.72)
[2021-11-15] MEDS: Amoxicillin/Potassium Clav 875 MG TAB PO SCH ×2 (08:16→19:25)
[2021-11-15] MEDS: Pantoprazole 40 MG GRANULES PACKET PO SCH (08:16)
[2021-11-15] MEDS: Carvedilol 25 MG TAB PO SCH ×2 (08:16→19:28)
[2021-11-15] MEDS: Amlodipine 10 MG TAB PO SCH (08:16)
[2021-11-15] MEDS: Clopidogrel Bisulfate 75 MG TAB PO SCH (08:16)
[2021-11-15] MEDS: Methimazole 5 MG TAB PO SCH (09:20)
[2021-11-15] MEDS: IBRUTINIB 420 MG TABLET PO SCH (09:20)
[2021-11-15 11:53] LABS: SARS-CoV-2 PCR by NAA Not Detected (NotDetected)
[2021-11-15] MEDS: Rosuvastatin 20 MG TAB PO SCH (19:25)
[2021-11-15] MEDS ORDERED: Propranolol 40 MG TAB PO SCH (21:00)
[2021-11-16] MEDS: Mometasone Furoate 30 PUFF 220 MCG INH SCH (01:37)
[2021-11-16 07:38] LABS: #Basophils 0.1 thou/uL (0.0-0.2); #Lymphocytes 2.8 thou/uL (1.20-3.40); #Monocytes 0.9 thou/uL (0.11-0.59); #Neutrophils 5.3 thou/uL (1.40-6.50); %Basophils 0.7 % (0.0-1.0); %Eosinophils 0.5 % (0.0-10.0); %Lymphocytes 31.1 % (21.0-51.0); %Monocytes 9.4 % (0.0-10.0); %Neutrophils 58.3 % (42.0-75.0); Hemoglobin 12.8 g/dL (12.0-16.0); Mean Corpuscular HGB CONC 31.3 g/dL (32.0-36.0); Mean Corpuscular Hemoglobin 30.9 pg (27.0-31.0); Mean Corpuscular Volume 98.5 fL (78.0-98.0); Mean Platelet Volume 9.8 fL (7.4-10.4); Platelet Count 132 thou/uL (130-400); RBC Distribution Width 14.3 % (11.5-14.5); Red Blood Cell (RBC) Count 4.15 mill/uL (4.20-5.40); White Blood Cell (WBC) Count 9.1 thou/uL (4.8-10.8)
[2021-11-16 07:57] LABS: Anion Gap 11 mmol/L (10-20); BUN (Urea Nitrogen) 13 mg/dL (9.8-20.1); Calc. Creatinine Clearance 100 mL/min (70-130); Calcium 10.8 mg/dL (7.8-10.44); Carbon Dioxide 27 mmol/L (23-31); Chloride 106 mmol/L (98-107); Glucose 102 mg/dL (83-110); Potassium 3.6 mmol/L (3.5-5.1); Sodium 140 mmol/L (136-145)
[2021-11-16] MEDS: Amoxicillin/Potassium Clav 875 MG TAB PO SCH (08:26)
[2021-11-16] MEDS: Pantoprazole 40 MG GRANULES PACKET PO SCH (08:26)
[2021-11-16] MEDS: Methimazole 5 MG TAB PO SCH (08:26)
[2021-11-16 08:27] VITALS: BP 128/88
[2021-11-16] MEDS: Clopidogrel Bisulfate 75 MG TAB PO SCH (08:27)
[2021-11-16] MEDS: Amlodipine 10 MG TAB PO SCH (08:27)
[2021-11-16] MEDS: Carvedilol 25 MG TAB PO SCH (08:27)
[2021-11-16] MEDS: IBRUTINIB 420 MG TABLET PO SCH (08:27)
[2021-11-16 09:50] VITALS: TEMP 98.8
[2021-11-18 14:44] LABS: EliA Thy New Method **** NEW METHOD ****
== END 2021-11-16 12:17 | disposition home or self-care (01) | DRG 177 ==
LOC: ERS 14:25 → NEURO 17:45 → T4-B 11-12 17:49
PROVIDERS: ADMIT Internal Medicine; ATTEND Hospitalist
DX: J69.0 Pneumonitis due to inhalation of food and vomit (principal); Z20.822 Contact with and (suspected) exposure to COVID-19; Z66 Do not resuscitate; G93.41 Metabolic encephalopathy; J44.0 Chronic obstructive pulmonary disease with (acute) lower respiratory infection; J96.11 Chronic respiratory failure with hypoxia; E21.0 Primary hyperparathyroidism; E05.90 Thyrotoxicosis, unspecified without thyrotoxic crisis or storm; I10 Essential (primary) hypertension; F41.9 Anxiety disorder, unspecified; F32.A Depression, unspecified; C50.912 Malignant neoplasm of unspecified site of left female breast; D69.6 Thrombocytopenia, unspecified; R26.9 Unspecified abnormalities of gait and mobility; R11.2 Nausea with vomiting, unspecified; E78.5 Hyperlipidemia, unspecified; Z88.8 Allergy status to other drugs, medicaments and biological substances; Z91.041 Radiographic dye allergy status; Z91.040 Latex allergy status; Z99.81 Dependence on supplemental oxygen; Z90.49 Acquired absence of other specified parts of digestive tract; Z98.51 Tubal ligation status; Z90.710 Acquired absence of both cervix and uterus; Z79.899 Other long term (current) drug therapy; Z79.51 Long term (current) use of inhaled steroids; Z79.82 Long term (current) use of aspirin; Z79.02 Long term (current) use of antithrombotics/antiplatelets; Z91.81 History of falling
CPT/HCPCS: 36415; 51701; 70450; 71045; 72170; 80048; 80053; 80143; 80179; 80306; 81003; 81015; 82330; 82550; 82805; 83605; 83690; 83735; 83970; 84436; 84439; 84443; 84445; 84484; 85025; 85610; 85730; 86376; 86800; 93005; 93010; 93880; 95816; 95819; 95957; 96365; 96367; 80307; J0295; J0456; J0696; J3490; J7050; J7120; U0003; U0005